=== PATIENT | male | born 1995 | race African-American/Black ===

== ENCOUNTER 2017-04-13 20:04 | Emergency (ER) | payer OTHER ==
[2017-04-13] MEDS ORDERED: CEFAZOLIN 1 GM/D5W RTU 50 ML IV ONE (20:22)
[2017-04-13] MEDS ORDERED: LIDOCAINE 1% INJ-PF (10 MG/ML) 30 ML SDV INJ ONE (20:22)
[2017-04-13] MEDS ORDERED: ONDANSETRON HCL INJ/PF 4 MG/2 ML SDV IV ONE (20:23)
[2017-04-13] MEDS ORDERED: ONDANSETRON HCL INJ/PF 4 MG/2 ML SDV ONE (20:26)
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
[2017-04-13] MEDS ORDERED: MORPHINE SULFATE 10 MG/ML INJ IV ONE ×2 (20:36→22:41)
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
[2017-04-13] MEDS ORDERED: NORMAL SALINE 1000 ML 1,000 ML IV ONE (21:33)
[2017-04-13 22:41] VITALS: BP 118/77
== END 2017-04-13 23:05 | disposition short-term general hospital (02) ==
LOC: ER 20:04
DX: S06.5X0A Traumatic subdural hemorrhage without loss of consciousness, initial encounter (principal); S02.0XXB Fracture of vault of skull, initial encounter for open fracture; S02.31XA Fracture of orbital floor, right side, initial encounter for closed fracture; S02.40CA Maxillary fracture, right side, initial encounter for closed fracture; V86.59XA Driver of other special all-terrain or other off-road motor vehicle injured in nontraffic accident, initial encounter
CPT/HCPCS: 96376; 99285; 96375; 96365; 71010; 70450; 70486; 72125; J0690; J3490; J2270; J2405; J7030